=== PATIENT | female | born 2000 | race Caucasian/White ===

== ENCOUNTER 2025-03-06 09:26 | Outpatient (CLI) | payer MEDICAID ==
--- NOTE | 2025-03-07 05:57 | PROCEDURE NOTE ---
Procedure Note Providers to CC ~ Interpretation: [place] EEG Note # Demographics Type of EEG Read: - Routine EEG - video Patient Location: Outpatient First Name: Jaqueline Last Name: Dale Date of : 2000 Age: 24 Gender: Female Facility: [facility] Time of Initial Page ([place] ): 03/06/2025 10:30 Time of Return Call ([place] Time): 03/06/2025 10:31 # EEG Interpretation Start Time of EEG Read (): 03/06/2025 09:52 Stop Time of EEG Read ([place] ): 03/06/2025 10:14 Duration: 0h 22m Technical Details: - The EEG electrodes were placed using the standard International 10-20 system of electrode placement. Video and an accessory EKG lead were used during the course of this study. - This study was recorded using the i4.ms EEG software Indication: - seizure seizure like activity with high anxiety levels, feelings of passing out. # Description Photic Stimulation: - NOT Performed Unable to tolerate Hyperventilation: NOT performed Phases Captured: - awake - drowsy Symmetry: symmetric Posterior Dominant Rhythm: - present, attenuates on eye opening 10Hz Predominant Frequencies: - posterior dominant alpha (8-12 Hz) - abundant (50-89%) Superimposed Frequencies: - beta (>15 Hz) - occasional (1-9%) Amplitude: normal Reactivity: yes Variability: yes Continuity: continuous EKG: Mild sinus tachycardia # Abnormalities Epileptiform Abnormalities: - NOT present Focal Slowing: no Seizure: - NOT present # Impression Impression: normal # Clinical Correlation Clinical Correlation: This is a normal EEG in the awake and drowsy state. No epileptiform discharges, focal slowing, or seizures were seen. A normal EEG does not exclude nor support the diagnosis of epilepsy. # Demographics First Name: Jaqueline Last Name: Dale Facility: [facility] CLEVE HERNANDEZ MD Mar 07, 2025 05:57
== END 2025-03-06 23:59 | disposition home or self-care (01) ==
LOC: RAD 09:26
PROVIDERS: ATTEND Nurse Practitioner Family
DX: R00.0 Tachycardia, unspecified (principal); Z87.59 Personal history of other complications of pregnancy, childbirth and the puerperium; Z82.49 Family history of ischemic heart disease and other diseases of the circulatory system; R51.9 Headache, unspecified
CPT/HCPCS: 95819